=== PATIENT | female | born 1950 | race Caucasian/White ===

== ENCOUNTER → 2017-03-14 | Outpatient (CLI) | payer MEDICARE, OTHER ==
[2015-06-09 10:04] VITALS: BP 170/90
[~2017-03-14] MED LIST: ASCO500T2 PO; BUPIVACAINE MPF 0.5% 10 ML VIAL for KCIC. IJ ONE; CALC667C6 PO; CETI10TA22 PO; CITA40TA5 PO; DEXL60CA PO; FISH1CAP PO; IOHEXOL 300 MG/ML 50 ML VIAL. INT ART ONE; LEVO50TA5 PO; LIDOCAINE 1% Multi-Dose 20 ML VIAL. ID ONE; MULT-658 PO; RANI150T6 PO; methylPREDNISolone ACETATE 40 MG/ML VIAL. INT ART ONE
--- NOTE | 2017-03-14 15:05 | KCIC ---
PROCEDURE RIGHT HIP THERAPEUTIC JOINT INJECTION USING FLUOROSCOPY INDICATIONS: Chronic right hip pain. PROCEDURE: The procedure and possible complications including bleeding and infection and allergic reaction were explained. The patient provided both verbal and written consent. A timeout was performed including confirming the name of the patient and the date of and the type of procedure and the side of the procedure. Allergic reactions were reviewed. The right hip was marked. The right hip was prepped with Betadine and draped in the usual sterile fashion. A total of 2 cc of 1% lidocaine was utilized for local anesthesia. Using sterile technique and fluoroscopic guidance, a 22 Gauge spinal needle was directed into the right hip oint from an anterior approach. A solution containing 4 cc of 1 percent lidocaine and 4 cc of 0.5 percent Marcaine and 2 cc (80 milligrams) of Depo-Medrol and 4 cc of Omnipaque 300 was injected was injected intra-articularly into the right hip joint under fluoroscopic observation. Fluoroscopic spot view was obtained confirming intra-articular position of the contrast. The needle was removed and hemostasis was deemed adequate. The patient tolerated the procedure well without complication. Followup will be with the patient's physician. Total fluoroscopic time: 7 seconds. Total fluoroscopic spot view: 1. IMPRESSION: Fluoroscopic guided therapeutic right hip joint injection was performed as discussed above without complication. Electronically signed by: Swapnil Healy MD (Mar 14, 2017 15:03:41)
== END | disposition home or self-care (01) ==
LOC: KCIC 13:22
PROVIDERS: ATTEND Orthopaedic Surgery Sports Medicine
DX: M25.551 Pain in right hip (principal); G89.29 Other chronic pain
CPT/HCPCS: 20610; 77002; J1030; Q9967